=== PATIENT | female | born 1995 | race Caucasian/White ===

== ENCOUNTER 2016-10-17 13:06 | Emergency (ER) | payer SELFPAY ==
--- NOTE | 2016-10-17 13:08 | ED Physician Chart ---
Chief Complaint/HPI - Patient Information Date Seen:: 10/17/16 Time Seen:: 13:08 Chief Complaint:: abdominal pain History of Present Illness:: 21-year-old female complains of acute, constant, severe, 10 out of 10, sharp, stabbing, nonradiating right lower quadrant abdominal/pelvic pain since this morning. Has associated nausea but no vomiting. Says that she has had the pain on and off for the past 2 weeks. It became acutely worse this morning. Historian:: Patient Review:: Nurse's Note Reviewed Review of Systems - Review of Systems Other: Complete system review otherwise unremarkable except as noted in history of present illness. Past Medical History - Past Medical History Past Medical History: Other (left-sided ovarian cysts) Family History: None Social History: Non Smoker, No Alcohol, No Drug Use, Other Surgical History: None Psychiatricy History: None Medication: None Family Medical History - Family Member Mother History Unknown: Yes Physical Exam - Physical Examination Other:: INITIAL VITAL SIGNS: Reviewed by me GENERAL: Alert and interactive. Moderate distress due to pain HEAD: Head is normocephalic and atraumatic EYES: EOMI. PERRL. No scleral icterus. No conjunctival injection ENT: Moist mucous membranes. NECK: Supple. No masses. Full range of motion RESPIRATORY: No tachypnea. Clear breath sounds bilaterally. No wheezing, rales, or rhonchi CV: Regular rate and rhythm. No murmurs, rubs, or gallops ABDOMEN: Soft, non-distended, tenderness to palpation right lower quadrant with guarding on deep palpation. No appreciable masses. EXTREMITIES: No deformity. No cyanosis. No edema. SKIN: Warm and dry. No obvious rashes. NEUROLOGIC: Alert and oriented. Face is symmetric. Speech is normal. Moves all extremities equally. Motor and sensory distally intact. Labs/Radiology/EKG Results - Lab Results Results: Lab Results 10/17/16 10/17/16 10/17/16 Range/Units 13:05 13:20 13:20 WBC 7.0 (4.8-10.8) Th/cmm RBC 4.54 (3.80-5.10) Mil/cmm Hgb 12.9 (11.7-15.5) gm/dL Hct 38.1 (35.0-45.0) % MCV 83.9 (81-100) fl MCH 28.4 (27.0-31.0) pg MCHC Differential 33.8 (28.0-36.0) pg RDW 12.7 (11.5-20.0) % Plt Count 252 (150-400) Th/cmm MPV 7.6 fl Neutrophils % 74.2 (40.0-80.0) % Lymphocytes % 19.4 L (20.0-50.0) % Monocytes % 4.7 (2.0-10.0) % Eosinophils % 0.9 (0.0-5.0) % Basophils % 0.8 (0.0-2.0) % Sodium 134 L (136-145) mEq/L Potassium 3.5 (3.5-5.1) mEq/L Chloride 106 (98-107) mEq/L Carbon Dioxide 23.0 (21.0-31.0) mEq/L Anion Gap 8.5 (7.0-16.0) BUN 8 (7-25) mg/dL Creatinine 0.6 (0.6-1.2) mg/dL Est GFR ( Amer) > 60.0 (>90) ml/min Est GFR (Non-Af Amer) > 60.0 ml/min BUN/Creatinine Ratio 13.3 Glucose 99 (70-105) mg/dL Calcium 9.4 (8.6-10.3) mg/dL Total Bilirubin 0.5 (0.3-1.0) mg/dL AST 14 (13-39) U/L ALT 7 (7-52) U/L Alkaline Phosphatase 53 (34-104) U/L Total Protein 7.8 (6.0-8.3) gm/dL Albumin 4.6 (3.7-5.3) gm/dL Globulin 3.2 gm/dL Albumin/Globulin Ratio 1.4 (1.0-1.8) Amylase 61 (29-103) U/L Lipase 17 (11-82) U/L Serum , Qual NEGATIVE (NEGATIVE) - Radiology Results Results: Ultrasound pelvis preliminary report per radiology NAD CT scan abdominal pelvis without contrast per radiology Some fluid-filled loops of bowel in the right lower quadrant consistent with enteritis - EKG Interpretations Comments:: 12-lead EKG Interpretation by Choco Hinkle MD: Normal Sinus Rhythm with ventricular rate of 79 beats per minute Normal axis Normal intervals No acute ST or T wave changes. No obvious STEMI ED Septic Shock - . Is Septic Shock (SBP<90, OR Lactate>4 mmol\L) present?: No Reassessment (Disposition) - Reassessment Reassessment:: Patient has had abdominal pain are offered past 2 weeks with acute worsening today. No findings on ultrasound or CT. Labs are all essentially unremarkable. Discussed all findings with the patient. She did receive IV analgesics and IV antiemetics. Patient feels total relief of symptoms. Patient has acute abdominal pain and a female patient. Follow-up PCP 1-2 days. Return to ER precautions given. Patient understands and agrees the plan. Reassessment Condition:: Improved - Diagnosis Diagnosis:: Acute abdominal pain, right lower quadrant, due to acute gastroenteritis - Aftercare/Follow up Instructions Aftercare/Follow-Up Instructions:: Counseled pt regarding lab results/diagnosis & need follow up, Refer to Discharge Instructions Medication Prescribed:: Zofran - Patient Disposition Discharge/Transfer:: Home Time:: 14:22 Condition at Disposition:: Improved ED Discharge Plan - Patient Disposition Admit/Discharge/Transfer: PT DISCHARGED HOME Condition at Disposition: Improved Instructions: Abdominal Pain, Women, Viral Gastroenteritis, [id number]
[2016-10-17] MEDS ORDERED: Sodium Chloride 0.9% 1,000 ML IV ONE (13:09)
[2016-10-17] MEDS ORDERED: Maalox 30 mL Cup PO ONE (13:09)
[2016-10-17] MEDS ORDERED: Donnatal Liq 5 ML UDC PO ONE (13:09)
[2016-10-17] MEDS ORDERED: Prochlorperazine 5 mg/mL 2mL Vial IVP STA (13:10)
[2016-10-17] MEDS ORDERED: Prochlorperazine 5 mg/mL 2mL Vial ONE (13:23)
[2016-10-17] MEDS ORDERED: Donnatal Liq 5 ML UDC ONE (13:24)
[2016-10-17] MEDS ORDERED: Maalox 30 mL Cup ONE (13:24)
[2016-10-17 13:32] LABS: % BASOPHILS 0.8 % (0.0-2.0); % EOSINOPHILS 0.9 % (0.0-5.0); % LYMPHOCYTES 19.4 % (20.0-50.0); % MONOCYTES 4.7 % (2.0-10.0); % NEUTROPHILS 74.2 % (40.0-80.0); HEMATOCRIT 38.1 % (35.0-45.0); HEMOGLOBIN 12.9 gm/dL (11.7-15.5); MEAN CELL VOLUME 83.9 fl (81-100); MEAN CORPUSCULAR HEMOGLOBIN 28.4 pg (27.0-31.0); MEAN CORPUSCULAR HGB CONC 33.8 pg (28.0-36.0); MEAN PLATELET VOLUME 7.6 fl; NEUTROPHILE ABSOLUTE 5.1 Th/cmm (1.8-8.0); PLATELET COUNT 252 Th/cmm (150-400); RED BLOOD COUNT 4.54 Mil/cmm (3.80-5.10); RED CELL DISTRIBUTION WIDTH 12.7 % (11.5-20.0)
[2016-10-17 13:54] LABS: ALB/GLOB RATIO 1.4 (1.0-1.8); ALKALINE PHOSPHATASE 53 U/L (34-104); AMYLASE SERUM 61 U/L (29-103); ANION GAP 8.5 (7.0-16.0); BILIRUBIN,TOTAL 0.5 mg/dL (0.3-1.0); BUN - UREA NITROGEN 8 mg/dL (7-25); BUN/CREATININE RATIO 13.3; CALCIUM SERUM 9.4 mg/dL (8.6-10.3); CHLORIDE 106 mEq/L (98-107); CREATININE - SERUM 0.6 mg/dL (0.6-1.2); GLUCOSE 99 mg/dL (70-105); LIPASE 17 U/L (11-82); POTASSIUM SERUM 3.5 mEq/L (3.5-5.1); SGOT 14 U/L (13-39); SGPT/ALT 7 U/L (7-52); SODIUM SERUM 134 mEq/L (136-145)
[2016-10-17 14:42] LABS: AMPHETAMINE URINE NEGATIVE (NEGATIVE); BARBITURATES URINE NEGATIVE (NEGATIVE); METHADONE URINE NEGATIVE (NEGATIVE); URINE BILIRUBIN NEGATIVE (NEGATIVE); URINE BLOOD NEGATIVE (NEGATIVE); URINE COLOR YELLOW; URINE EPITHELIAL CELLS OCCASIONAL /lpf (FEW); URINE GLUCOSE (UA) NEGATIVE (NEGATIVE); URINE KETONE NEGATIVE (NEGATIVE); URINE PH 5.5; URINE PROTEIN NEGATIVE (NEGATIVE); URINE RBC NONE SEEN /hpf (0-5); URINE UROBILINOGEN 0.2 E.U./dL (0.2 - 1.0); URINE WBC 0-2 /hpf (0-5)
[2016-10-17 14:43] LABS: URINE BACTERIA FEW /hpf (NONE SEEN)
--- NOTE | 2016-10-17 14:43 | Diagnostic Imaging Report ---
Right lower quadrant ultrasound, limited History: Right lower quadrant pain Comparison: CT abdomen and pelvis the same day Technique/procedure: Sonographic images of the right lower quadrant was obtained. Exam is limited due to bowel gas. The appendix is not visualized. IMPRESSION: Limited exam due to bowel gas. The appendix is not visualized. Please refer to CT examination of the abdomen and pelvis performed the same day for further findings.
--- NOTE | 2016-10-17 14:44 | Diagnostic Imaging Report ---
CT abdomen and pelvis without intravenous contrast Indication: Right lower quadrant pain Comparison: None, Technique: Axial images were obtained from the lung bases to the bilateral proximal femurs without IV contrast. Coronal reconstructions were made. total DLP: 293, CTDI6.2 FINDINGS: Hypoventilatory changes of the lung bases are noted. Evaluation of the solid organs is limited due to lack of IV contrast. No evidence of focal hepatic, splenic, pancreatic, or extra lesions. There is fullness of the bilateral renal collecting systems without evidence of fernando hydronephrosis. Mildly prominent uterus is seen with trace fluid in the pelvis. There is right adnexal fullness with few fluid-filled loops of small bowel in the right lower quadrant. No evidence of acute appendicitis. No evidence of free air. The osseous structures demonstrate no acute abnormalities. IMPRESSION: No evidence of acute appendicitis. A few fluid-filled loops of small bowel in the right lower quadrant. Note exam was limited due to lack of oral contrast. Findings may be due to an enteritis. Clinical correlation is recommended. Small amount of free fluid in the pelvis. Mildly prominent uterus and fullness of the right adnexa. Ultrasound would further clarify. Nonspecific fullness of bilateral renal collecting systems without evidence of fernando hydronephrosis. No evidence of radiopaque renal stones.
--- NOTE | 2016-10-17 14:46 | Diagnostic Imaging Report ---
Ultrasound pelvis HISTORY: Pelvic pain history of right ovarian cysts. Beta hCG is negative. LMP is 09/28/2016 COMPARISON: CT abdomen and pelvis the same day Technique: Longitudinal and transverse sonographic sector images of the pelvis were obtained transabdominally. Note patient refused transvaginal images Findings: The uterus measures 12.4 x 5.7 x 7.5 cm. The endometrium measures 4 mm. The right ovary measures 2.8 x 2.7 cm. The Left ovary measures 3.9 x 2.4 cm. The small amount of free fluid seen on recent CT exam was not identified sonographically. Vascular flow to the ovaries is noted. IMPRESSION: Mildly prominent uterus. Vascular flow to both ovaries is noted. No focal adnexal lesions identified.
== END 2016-10-17 15:35 | disposition home or self-care (01) ==
LOC: ER 13:06
DX: K52.9 Noninfective gastroenteritis and colitis, unspecified (principal); Z88.8 Allergy status to other drugs, medicaments and biological substances
CPT/HCPCS: 99285; 96374; 96375; 93005; 76705; 76856; 74176; 36415; 80300; 85025; 81001; 82150; 81025 ×2; 83690; 80053; J1885; J2405; 80307; J0780; J7030